=== PATIENT | male | born 1940 | race Caucasian/White ===

== ENCOUNTER 2016-11-09 18:46 | Inpatient (IN) | payer MEDICARE, BC ==
--- NOTE | ~2016-11-09 | CO ---
Unit #: [id number] #: [id number] Patient: VISHAL NOLAND JR [id number] [address] [place], [place] [address] [id number] I MR#: [id number] NAME: VISHAL NOLAND JR ROOM: 310 Age: 76 Sex: M Admission Date: 11/09/2016 : 1940 Attending Physician: Petrona Coleman M.D. Primary Care Physician: Valdez Ayala M.D. Consultation Date: 11/10/2016 CONSULTATION REPORT REASON FOR CONSULT Renal failure, hyperkalemia. Thank you very much for asking me to see this patient in consultation. Mr. Vishal Noland is a 76-year-old male who has a history of ascites requiring intermittent paracentesis although workup, according to Dr. Lancaster, was negative so far including liver biopsy, even ruling out amyloidosis, etc. as well as ruling out cardiac related according to him, who had a large volume paracentesis and labs were done yesterday which showed an increased potassium. Apparently as an outpatient it was reported at 7. When he came in here it was 6.6 and BUN and creatinine 92 and 2.7. In reviewing his records, back in 2015 he had a creatinine ranging between 1.3 and .4 an in August it was 1.5. Over the last six months, he has been started on Aldactone to the ascites. He currently denies ever having any problems, seeing a kidney doctor. He also denies taking nonsteroidals. In June of 2016, he had a urinalysis that showed no proteinuria or hematuria at that time. PAST MEDICAL HISTORY 1. History of hypertension. 2. History of ascites. 3. History of diabetes mellitus. 4. History of anemia. 5. History of gastroesophageal reflux disease. SOCIAL HISTORY He is . Doesn't smoke. He drinks two to three drinks a week. FAMILY HISTORY Negative for kidney problems. MEDICATIONS His medicines at home include: 1. Amlodipine/atorvastatin daily. 2. Zetia daily. 3. Glipizide daily. 4. Lisinopril/Hydrochlorothiazide 20/12.5 twice a day. 5. He is on pantoprazole 40 mg at day. 6. He is on pioglit/metformin 15/500 twice a day. 7. He is on spironolactone 100 mg a day. 8. Lasix 40 mg a day. REVIEW OF SYSTEMS Unit #: [id number] #: [id number] Patient: VISHAL NOLAND JR He denies any fevers, chills, visual problems, sinus problems, cough, hemoptysis, sore throat, difficulty swallowing. No neck pain, neck stiffness. No chest pain, chest heaviness or palpitations. He denies any severe abdominal pain, just intermittent ascites and swelling. Denies any urinary symptoms, starting, stopping or burning. He denies any recent lower extremity swelling. He did have some in the past but with his diuretics he says that has improved. He denies any recent seizures, strokes or skin rashes. PHYSICAL EXAMINATION GENERAL: He is alert and oriented. VITAL SIGNS: His T max is 98.3, his pulse is 60 to 72, his blood pressure is 106-136/402 to 70s. HEENT: He is normocephalic, atraumatic. Pupils are equal, round, reactive to light. Extraocular muscles are intact. Hearing appears to be normal. Mouth is clear. No erythema, no exudate. NECK: Supple. No JVD, no adenopathy. CARDIAC: He has a regular rhythm with about a 2/6 systolic ejection murmur. No rubs were heard. No S3 or S4 was heard. LUNGS: Fairly clear bilaterally with no wheezes, rhonchi or rales. ABDOMEN: Mildly distended. Bowel sounds positive. Nontender, soft. EXTREMITIES: He has no lower extremity swelling. His pulses are intact in upper and lower extremities. JOINTS: No joint pain or joint swelling. SKIN: No rashes. NEUROLOGICAL: Appears to be intact to both motor and sensory grossly. : Deferred. DIAGNOSTIC STUDIES LABORATORY DATA: Upon presentation, glucose 143, BUN 92, creatinine 2.7, potassium 6.6, bicarb is 16, calcium is 8.8, albumin is 3.6. Liver function tests were normal. T saturation was 18. Today, his calcium is 8.0, his BUN is down to 74, creatinine 1.8, potassium of 5.0, bicarb is 15. His INR is 1.3. Hemoglobin was 7.9 when he came in, down to 6.9 today. White count 7600, platelets of 252,000. He had a retic count of 0.8. No urinalysis was done. He did have an S-PEP in September 2016 that showed no abnormalities. ASSESSMENT AND PLAN 1. Hyperkalemia: Patient with increased potassium, multifactorial, including acidosis as well as lisinopril as well as Aldactone, all causing hyperkalemia along with his renal insufficiency. Certainly, it is improving. He is still on the spironolactone. Will DC this. He is off his lisinopril as well and will again keep him off this for now. Will recheck in the morning, continue to follow. He also is acidotic. Unsure exact etiology, possibly related to renal insufficiency versus maybe lactic acidosis from his metformin versus other. Will put him on some oral p.o. bicarbonate for now. 2. Acute on probable chronic kidney disease stage 3: Patient's baseline creatinine is 1.3 to 1.5 over the last year. His last urine was benign. Will recheck a UA to make sure he doesn't have any active urinary sediment, either hematuria or proteinuria. Check a bladder scan postvoid residual, check a renal ultrasound to rule out obstruction. Check urine sodium as well. I don't think he has hepatorenal syndrome. He does appear to be volume depleting and will Unit #: [id number] #: [id number] Patient: VISHAL NOLAND JR stop his Lasix along with his spironolactone and keep in observation. Recheck labs in the morning. 3. Acidosis: I don't have an ABG but I assume metabolic acidosis. Will check a lactic acid level. 4. Ascites: Continue workup. 5. Anemia: Workup under way. 6. Hypertension: Again, will follow. Continue off his LEIGHA inhibitor and Lasix and Aldactone for now. Thank you very much. Dictated by... Missael Macias M.D. EDMUND/vanessa TD: 11/11/2016 08:59 JOB #: [id number] CONSULTATION REPORT Page 1 of 1 X Earnest Macias MD X CONSULTATION REPORT
--- NOTE | ~2016-11-09 | EKG ---
PATIENT: KEVYN RIDDLE UNIT #: [id number] Ventricular Rate: 54 BPM Atrial Rate: 65 BPM QRS Duration: 90 ms Q-T Interval: 426 ms QTC Calculation(Bezet): 403 ms Calculated R [place]: -19 degrees Calculated T [place]: 46 degrees Diagnosis Line: Undetermined rhythm Diagnosis Line: Otherwise normal ECG Diagnosis Line: When compared with ECG of 26-JUN-2016 08:42, Diagnosis Line: Current undetermined rhythm precludes rhythm Diagnosis Line: comparison, needs review Diagnosis Line: Confirmed by JAQUELIN DUENAS MD ([id number]) on 11/10/2016 Diagnosis Line: 11:20:55 PM INTERPRETING MD: YULISSA MORALES
--- NOTE | ~2016-11-09 | EKG ---
PATIENT: KEVYN RIDDLE UNIT #: [id number] Ventricular Rate: 56 BPM Atrial Rate: 32 BPM QRS Duration: 92 ms Q-T Interval: 418 ms QTC Calculation(Bezet): 403 ms Calculated R [place]: -17 degrees Calculated T [place]: 62 degrees Diagnosis Line: Atrial fibrillation Diagnosis Line: Abnormal ECG Diagnosis Line: No previous ECGs available Diagnosis Line: Confirmed by JAQUELIN DUENAS MD ([id number]) on 11/11/2016 Diagnosis Line: 10:29:02 PM INTERPRETING MD: YULISSA MORALES
--- NOTE | ~2016-11-09 | XA51 ---
[facility] A Service of [facility] RADIOLOGY TEXT RESULTS PATIENT: KEVYN NOLAND JR LOCATION: [facility] 310- : 39 UNIT #: [id number] AGE: [address]: Petrona Coleman MD SEX: M ORDER DR: [id number] [address] [place], [place] [address] [id number] I MR#: [id number] #: [id number] NAME: KEVYN NOLAND : 1940 SEX: M STUDY DATE/TIME: 11/11/2016 12:05 UNIT: [address] ROOM: [facility] STUDY DESCRIPTION: XA BX Bone Marrow Attending Physician: Petrona Coleman M.D. Ordering Physician: Francisco Moreno M.D. Primary Care Physician: Valdez Ayala M.D. MEDICAL IMAGING REPORT This report is preliminary unless electronic signature is present EXAM Fluoroscopically-guided bone marrow biopsy and aspiration. HISTORY 76-year-old male with anemia. MEDICATIONS 3 mg of Versed IV, 125 mcg of fentanyl IV administered. Approximately 30 minutes of sedation time was monitored by appropriately credentialed Radiology nursing staff. The risks, benefits and alternatives to the procedure were discussed with the patient, and informed consent was obtained. In the procedure room, a time-out was performed, confirming correct patient and procedure. All elements of maximum sterile barrier technique were utilized according to guidelines appropriate for the procedure. The patient was placed in the prone position on the fluoroscopy table. Skin overlying the posterior right iliac crest was prepped and draped in the usual sterile fashion. 1% lidocaine was utilized to anesthetize the skin and underlying subcutaneous tissues. Next, under fluoroscopic guidance, an 11-gauge OnControl Access needle was advanced into the marrow space. A bone marrow aspirate, followed by a biopsy, was obtained. The needle was removed, and a sterile dressing was applied. There were no immediate complications. FLUOROSCOPY Fluoro time 0.3 minutes, and reference air kerma was 17 mGy-cm. IMPRESSION Technically successful fluoroscopically-guided bone marrow biopsy [facility] A Service of [facility] RADIOLOGY TEXT RESULTS PATIENT: KEVYN NOLAND JR [facility] 310-01 : 39 UNIT #: [id number] AGE: [address]: Petrona Coleman MD SEX: M ORDER DR: aspiration Dictated by... Adi Noland M.D. THIS IS AN ELECTRONICALLY VERIFIED REPORT Adi Noland M.D. at 11/12/2016 9:02 AM León TD: 11/11/2016 17:47 JOB #: [id number] MEDICAL IMAGING REPORT Page 1 of 1 COPY
--- NOTE | ~2016-11-09 | US77 ---
[facility] A Service of [facility] RADIOLOGY TEXT RESULTS PATIENT: KEVYN RIDDLE JR LOCATION: [facility] 310-01 : 39 UNIT #: [id number] AGE: [address]: Petrona Coleman MD SEX: M ORDER DR: [id number] [id number] [facility] [place], [place] [address] [id number] I MR#: [id number] Acc #: [id number] NAME: KEVYN RIDDLE : 1940 SEX: M STUDY DATE/TIME: 11/10/2016 18:57 UNIT: [address] ROOM: [facility] STUDY DESCRIPTION: US Kidney Bilateral Complete Attending Physician: Petrona Coleman M.D. Ordering Physician: Missael Macias M.D. Primary Care Physician: Valdez Ayala M.D. MEDICAL IMAGING REPORT This report is preliminary unless electronic signature is present EXAM Bilateral renal ultrasound HISTORY Acute renal failure. Elevated creatinine. FINDINGS Ultrasound examination both kidneys demonstrates no hydronephrosis. There is a subtle hypoechoic mass in the upper pole right kidney corresponding to a subcentimeter renal cyst on CT 05/01/2016. There is also a small exophytic cyst in the lower pole left kidney measuring close to 1.5 cm also corresponding to a finding on CT. There is slightly increased renal parenchymal echotexture bilaterally suggesting chronic medical renal disease. Mild generalized bilateral renal parenchymal atrophy. The right kidney measures 9.6 in length and the left kidney measures 11.3 cm in length. No perinephric fluid collection. However, there is a small amount of diffuse abdominal ascites. The urinary bladder is unremarkable. IMPRESSION 1. No hydronephrosis. 2. Slightly increased renal parenchymal echotexture bilaterally suggesting chronic medical renal disease. 3. Small probable cysts in both kidneys appear to correspond a similar findings on CT 05/01/2016, better demonstrated on the CT. 4. Mild renal cortical thinning bilaterally. 5. Small amount of ascites. Dictated by... Aayush Robert M.D. THIS IS AN ELECTRONICALLY VERIFIED REPORT [facility] A Service of [facility] RADIOLOGY TEXT RESULTS PATIENT: KEVYN RIDDLE JR LOCATION: [facility] 310-01 : 39 UNIT #: [id number] AGE: [address]: Petrona Coleman MD SEX: M ORDER DR: Aayush Robert M.D. at 11/11/2016 10:55 PM JAYSON/rose TD: 11/11/2016 00:17 JOB #: [id number] MEDICAL IMAGING REPORT Page 1 of 1 COPY
--- NOTE | ~2016-11-09 | CO ---
Unit #: [id number] #: [id number] Patient: KEVYN NOLAND JR [id number] [facility] [address] [facility] [place] [facility]. [place], [place] [address] [id number] I MR#: [id number] NAME: KEVYN NOLAND JR ROOM: 310 Age: 76 Sex: M Admission Date: 11/09/2016 : 1940 Attending Physician: Petrona Coleman M.D. Primary Care Physician: Valdez Ayala M.D. Consultation Date: 11/11/2016 CONSULTATION REPORT CHIEF COMPLAINT Admitted with hyperkalemia. We were asked to see for atrial fibrillation with slowed ventricular rate. HISTORY OF PRESENT ILLNESS Mr. Noland is a 76-year-old white male with a history of anasarca and ascites since 2015. He has had multiple paracentesis without malignancy being identified. He has a history of atrial fibrillation since the s. He has never required any rate control medications. He denies any anticoagulation other than aspirin. The patient states that two days ago he presented to his doctor's office, where he underwent a paracentesis and blood work. An then his physician sent him to [facility] for hyperkalemia. He presented in the emergency room with a potassium of 6.6 and has been treated with Kayexalate. Last night, magnesium level was done and that was 0.9 and at present, the patient is being replaced with his magnesium. He states he has never had a coronary catheterization. He has never had a stress test. He does not have issues with chest pain, nor shortness of air. The only time he has experienced shortness of air was when he had ascites and they removed 9 L of fluid and his shortness of air resolved. He underwent a cardiac MRI on 10/12/2016, which showed left ventricular ejection fraction of 70%, normal wall motion, right ventricular size and systolic function was normal with a right ventricular EF of 65%. There was no evidence for left ventricular scar, fibrosis or infarction. There was nothing to suggest amyloidosis. There was no evidence of pericardial thickening, nothing to suggest constriction. Again with ascites noted and there was enlargement of the main pulmonary artery at 3.3 cm indicative of pulmonary hypertension. PAST MEDICAL HISTORY 1. Ascites with multiple paracentesis and anasarca with no malignancy identified. 2. Hypertension. 3. Diabetes type 2. 4. Dyslipidemia. 5. Diastolic congestive heart failure with an ejection fraction of 55% to 60%. Echo done on 09/15/2016 showed an EF of 65%, left atrium was mildly dilated. The right ventricular systolic pressure was 52, consistent with moderate pulmonary hypertension. There was mild to moderate tricuspid regurgitation. Rhythm was atrial fibrillation at that time. PAST SURGICAL HISTORY 1. Paracentesis x3. 2. Bilateral inguinal hernia repair. Unit #: [id number] #: [id number] Patient: KEVYN NOLAND JR 3. EGD, biopsy done 05/01/2016 showed mild to moderate erosive duodenitis. 4. Peritoneal biopsy. 5. Liver biopsy. 6. Colonoscopy. 7. Right thumb surgery. 8. Bilateral cataract surgery. HOME MEDICATIONS PRIOR TO ADMISSION Showed amlodipine and atorvastatin 5/80 mg daily; Zetia 10 mg daily; Glucotrol XL 5 mg every morning; lisinopril and hydrochlorothiazide 20/12.5 twice daily; Protonix 40 mg daily; pioglitazone and metformin 15/500 twice daily; Lasix 40 mg daily; spirolactone 100 mg daily. ALLERGIES No known allergies. FAMILY HISTORY Noncontributory. REVIEW OF SYSTEMS No fevers. No chills. No cough. No shortness of air. No chest pain. No chest pressure. No palpitations. No near syncope. No lightheadedness. No dizziness. Patient states his average ventricular rate runs around 55. Positive for snoring at night. No hematuria. No melena. No bright red bleeding per rectum. Positive for abdominal distention and fluid. No gait disturbance. PHYSICAL EXAMINATION GENERAL: Well-developed, well-nourished, white male, in bed, no acute distress. VITAL SIGNS: Temperature 98.0, blood pressure 126/57, pulse at present is 70, heart rate has been anywhere between 32 and 70. There are no pauses. Currently patient has PVCs in short runs and nonsustained VT with a magnesium of 1.0. Respirations are 18. He is 5 feet 11 inches, weight is 72.8 kg on admission. 11/09/2016 he was 72.57 kg. HEENT: Normocephalic and atraumatic. No xanthelasma. Pupils equal, round, and reactive to light. Extraocular movements intact. No jugular venous distention. No obvious elevation of CVP. LUNGS: Clear to auscultation bilaterally anteriorly, posteriorly, bilaterally. HEART: S1 and S2. 2/6 systolic murmur. No lift. PMI is nondisplaced. Atrial fibrillation with variable ventricular rate this a.m. in the 60s and 70s. ABDOMEN: Positive bowel sounds. Abdomen distended. EXTREMITIES: Bilateral lower extremity edema. 2+ pulses. SKIN: No rash. NEUROLOGIC: Awake, alert, and oriented x3. Speech clear and appropriate. No facial drooping. Moving all extremities spontaneously with equal strength. DIAGNOSTIC STUDIES IMAGING STUDIES: 11/09/2016 - paracentesis removing 5.3 L of fluid. 11/10/2016 - ultrasound of the kidneys show no hydronephrosis, slightly increase renal parenchymal echotexture bilaterally. Stress chronic medical renal disease, small probable cyst in both kidneys. A small amount of ascites. Unit #: [id number] #: [id number] Patient: VENKATESH MAJOR,KEVYN Cedillo LABORATORY STUDIES: Chemistry - sodium 135, potassium 4.9, chloride 109, CO2 17, BUN 57, creatinine 1.2, glucose 106, magnesium 0.9, total protein 5.5, albumin 2.9, AST 26, ALT 22. CK 90. Iron 57, total iron binding capacity 309. Trans fat 18, B12 362, folate 16.7, ferritin 181, transferrin 220. Lactic acid 1.5. Coagulation - PT 13.4, INR 1.3, PTT 29.2. Hemoglobin 7.5, hematocrit 21.9, white blood cell count 6.6, and platelet count 267,000. UA negative for leukocyte esterase, negative nitrate, negative bile and blood, negative ketones, negative glucose, negative protein. ASSESSMENT AND PLAN 1. Atrial fibrillation with slow ventricular rate. Patient is not on any beta-blockers nor on any calcium channel blockers. Rates are now in the 60s to 70s. There were no pauses noted. Mostly his low rates were during the night. Patient presented with hyperkalemia and hypomagnesemia. This is most likely related to his electrolyte imbalances, possible also obstruct sleep apnea. We will screen with an overnight pulse oximetry. 2. Hyperkalemia. Most likely due to spironolactone therapy. 3. Hypomagnesemia. Patient was on multiple diuretic therapy, currently being replaced. 4. Nonsustained VT. Frequent PVCs in the setting of electrolyte imbalance, again being replaced. 5. Anemia with hemoglobin of 7.5. Primary team following. 6. Pulmonary hypertension with right ventricular systolic pressure of 53 on echo and as well per cardiac MRI revealing main pulmonary artery 3.3 cm. 7. There is no evidence for a sick sinus syndrome. No pauses. No tachycardiac. No requirement for a permanent pacemaker at this time. Again we will screen for obstructive sleep apnea. We will also discontinued his Zetia. His diuretics have already been discontinued. Dr. Arellano has seen in consultation and plan confirmed. Thank you very much for allowing us to participate in the care of your patient. Dictated by... Reagan BarkerP.R.N. for Cirilo Arellano M.D. SHELIA/yuko TD: 11/11/2016 10:38 JOB #: [id number] CONSULTATION REPORT Page 1 of 1 X X CONSULTATION REPORT
--- NOTE | ~2016-11-09 | DS ---
Unit #: [id number] #: [id number] Patient: KEVYN RIDDLE JR [id number] [address] [address] [id number] I MR#: [id number] NAME: KEVYN RIDDLE JR ROOM: 310 Age: 76 Sex: M Admission Date: 11/09/2016 : 1940 Discharge Date: 11/12/2016 Attending Physician: Petrona Coleman M.D. Primary Care Physician: Valdez Ayala M.D. DISCHARGE SUMMARY FINAL DIAGNOSES 1. Hyperkalemia. 2. Acute on chronic renal failure. 3. Anemia. SECONDARY DIAGNOSES 1. Ascites. 2. Hypertension. 3. Diabetes mellitus type 2. 4. Gastroesophageal reflux disease. CONSULTS 1. Dr. Moreno - Oncology. 2. Dr. Marvin Macias - Nephrology. HOSPITAL COURSE Pleasant gentleman who does have chronic kidney disease stage 3 with chronic disease. He basically was admitted after he was seen from Dr. Aubrey Lancaster's office. Workup included a bone marrow which was evaluated by Oncology/Hematology. His medications were adjusted by nephrology. He was evaluated, suitable and stable for discharge. He will be discharged in stable condition. MEDICATIONS Medications on discharge include: 1. Sodium bicarb 1300 mg p.o. twice daily. 2. Pioglitazone plus metformin 15/500, one tablet p.o. b.i.d. 3. Zetia 10 mg p.o. daily. 4. Lasix 40 mg p.o. daily. 5. Amlodipine/atorvastatin 50/5/80, one tablet p.o. daily. 6. Spironolactone 50 mg p.o. daily as needed. 7. Protonix 40 mg p.o. daily. 8. Glucotrol XL 5 mg p.o. before breakfast. He is scheduled to follow up with his PCP in the next one week and follow up with Dr. Aubrey Lancaster as planned as an outpatient. Time spent coordinating discharge is about 27 minutes. Dictated by... Petrona Coleman M.D. Unit #: [id number] #: [id number] Patient: KEVYN RIDDLE JR OO/vanessa TD: 11/12/2016 11:27 JOB #: [id number] DISCHARGE SUMMARY Page 1 of 1 X Petrona Coleman MD DISCHARGE SUMMARY
--- NOTE | ~2016-11-09 | HP ---
Unit #: [id number] #: [id number] Patient: KEVYN RIDDLE JR [id number] [address] [place], [place] [address] [id number] I MR#: [id number] NAME: KEVYN RIDDLE JR ROOM: 310 Age: 76 Sex: M Admission Date: 11/09/2016 : 1940 Attending Physician: Petrona Coleman M.D. Primary Care Physician: Valdez Ayala M.D. HISTORY AND PHYSICAL REASON FOR EVALUATION Anemia. Please evaluate. HISTORY OF PRESENT ILLNESS The patient is a 76-year-old gentleman who started having ascites about a year ago and has had multiple abdominal paracenteses without actual diagnosis of why he is having ascites. He had upper and lower endoscopies and rectal biopsy and multiple abdominal paracenteses and laparoscopy with biopsy of the liver and omentum, which was unrevealing. He was found to have a normochromic normocytic anemia. We are requested to evaluate. PAST MEDICAL HISTORY 1. Diabetes type 2. 2. Hypertension. 3. Ascites. 4. Gastroesophageal reflux disease. SOCIAL HISTORY . The is present with him in the room. Nonsmoker. No alcohol usage. FAMILY HISTORY Negative for unknown ascites or unknown cancers. ALLERGIES No known drug allergies. HOME MEDICATIONS 1. Amlodipine. 2. Zetia. 3. Glucotrol. 4. Lipitor. 5. Protonix. 6. Furosemide. 7. Spironolactone. 8. Metformin. REVIEW OF SYSTEMS Tiredness, easily fatigued. About 25 to 30 pound weight loss over the last year. Otherwise 8 or 10 systems were within normal limits on exam. PHYSICAL EXAMINATION GENERAL: He looks his stated age. LYMPH: No supraclavicular, axillary or groin nodes. Unit #: [id number] #: [id number] Patient: KEVYN RIDDLE JR LUNGS: Lungs clear. HEART: Distant S1 and S2. ABDOMEN: Ascites is present. Moderate. NEUROLOGIC: Grossly intact. RECTAL: Not performed. DIAGNOSTIC STUDIES LABORATORY: CBC, hemoglobin 6.9, hematocrit 21, white blood cell count 5,900, platelets 252,000. Sodium 138, potassium 5, chloride 114, CO2 15, glucose 97, BUN 74, creatinine 1.8. ASSESSMENT This 76-year-old gentleman with refractory ascites still unexplained, has normochromic normocytic anemia, most probably related to his CKD 2-3. PLAN Will proceed with serum iron, TIBC, ferritin, B12, folate and reticulocyte count. Start Procrit if those are normal. Also proceed with bone marrow aspirate biopsy flow cytometry and special stains to see if we can explain his refractory ascites. Dictated by Francisco Moreno M.D. SPS/gz TD: 11/10/2016 14:50 JOB #: [id number] HISTORY AND PHYSICAL Page 1 of 1 X Francisco Moreno MD X HISTORY AND PHYSICAL
--- NOTE | ~2016-11-09 | HP ---
Unit #: [id number] #: [id number] Patient: KEVYN RIDDLE JR [id number] [address] [place], [place] [address] [id number] MR#: [id number] NAME: KEVYN RIDDLE JR ROOM: 24614 Age: 76 Sex: M Admission Date: 11/09/2016 : 1940 Attending Physician: Petrona Coleman M.D. Primary Care Physician: Valdez Ayala M.D. HISTORY AND PHYSICAL CHIEF COMPLAINT Hyperkalemia. HISTORY OF PRESENT ILLNESS The patient is a 76-year-old male who has a history of undiagnosed ascites and anasarca who usually gets large volume paracentesis which so far has been negative for malignancy of any sort. He went to see Dr. Lancaster in the office and was directed to come to the ER today for evaluation on account of some abnormal labs. On evaluation in the emergency room, potassium was 6.6. He did receive Kayexalate 30 grams. Other than that, he denied any headache, chest pain, shortness of breath, or difficulty breathing and denied any constipation or diarrhea. He does have abdominal distention. The tightness has improved significantly since he had it tapped today. REVIEW OF SYSTEMS Patient denied any palpitations, nausea, or vomiting at this time. He states he is actually hungry. PAST MEDICAL HISTORY 1. Ascites. 2. Hypertension. 3. Diabetes mellitus type 2. 4. Gastroesophageal reflux disease. PAST SURGICAL HISTORY 1. Peritoneal biopsy. 2. Liver biopsy. 3. Diagnostic laparoscopy with removal of ascites fluid up to 5500. 4. Colonoscopy. 5. Tooth extraction. 6. Right thumb surgery. 7. Bilateral inguinal hernia repair. 8. Bilateral cataract surgery. ALLERGIES No known drug allergies. FAMILY HISTORY Noncontributory to presenting complaint. PHYSICAL EXAMINATION GENERAL: He was comfortable and not in any distress. VITAL SIGNS: Blood pressure 136/42, pulse 65, respiratory rate 16, and Unit #: [id number] #: [id number] Patient: KEVYN RIDDLE JR temperature 97.5. HEENT: Pupils were equal and reactive to light and accommodation. NECK: Supple without thyromegaly. CHEST: Reduced breath sounds in the lung bases posteriorly. CARDIOVASCULAR: First and second heart sounds. ABDOMEN: Full. Moved with respiration. Positive fluid thrill. EXTREMITIES: Mild 1+ bilateral lower extremity edema. DIAGNOSTIC STUDIES LABORATORY: Chemistries with glucose initially of 143, BUN and creatinine 92 and 2.7, sodium and potassium 135 and 6.6, and chloride and bicarbonate 111 and 16. Labs on repeat showed a sodium of 134 and potassium of 5.3. CBC with WBC of 7.6, hemoglobin and hematocrit 7.9 and 24, and platelet count of 280,000. ASSESSMENT AND PLAN 1. Hyperkalemia. He has received Kayexalate and some fluids. Will repeat his CBC and BMP in the morning. 2. Ascites, status post paracentesis. Will reevaluate his symptoms. 3. Hypertension. 4. Diabetes mellitus type 2. Put him on a constant carbohydrate diet and put him on Accu-Cheks q.a.c. and at bedtime with a low-dose sliding scale. 5. Reevaluate his electrolytes in the morning with a CBC and BMP. Should these be normal, will discharge patient home. 1. Dictated by Karey Mckeon/oscar TD: 11/09/2016 20:02 JOB #: [id number] HISTORY AND PHYSICAL Page 1 of 1 X Petrona Coleman MD X HISTORY AND PHYSICAL
[~2016-11-09 18:46] MED LIST: ACTOPLUS MET X1 EACH PO; AMLODIPINE-ATO1 EAC3 PO; ASPIRIN81 M1 PO; ASPIRIN81 M2 PO; FUROSEMIDE40 MG PO; GLUCOTROL XL PO; LISINOPRIL-HCTZ1 T14 PO; PIOGLITAZONE-M1 EACH PO; PROTONIX PO; SPIRONOLACTONE100 MG PO; SPIRONOLACTONE50 MG PO; ZETIA PO
[2016-11-09 19:25] LABS: BUN/CREATININE RATIO 38.63; CALCIUM SERUM 8.1 mg/dL (8.4-10.2); CREATININE SERUM 2.2 mg/dL (0.6-1.4); GLOM FILT RATE Estimated 27.9 mL/min (>60); POTASSIUM 5.3 mmol/L (3.5-5.1)
[2016-11-10 08:11] LABS: BASOPHIL# 0.1 X10e3 (0-0.3); EOSINOPHIL# 0.2 X10e3 (0-0.7); EOSINOPHIL% 3.9 % (0.0-7.0); LYMPHOCYTE# 0.9 X10e3 (1.0-3.5); LYMPHOCYTE% 16.1 % (17.0-45.0); MEAN CELL VOLUME 87.2 FL (83-96); MEAN CORPUSCULAR HEMOGLOBIN 28.6 PG (28-34); MEAN CORPUSCULAR HGB CONC 32.8 g/dL (30-36); MEAN PLATELET VOLUME 7.9 FL (6.5-11.5); MONOCYTE# 0.7 X10e3 (0-1.0); MONOCYTE% 11.4 % (3.0-12.0); NEUTROPHIL% 67.6 % (40-75); PLATELET COUNT 252 X10e3 (140-420); WHITE BLOOD COUNT 5.9 X10e3 (4.0-10.5)
[2016-11-10 08:25] LABS: DIFF IND YES; HEMOGLOBIN 6.9 gm/dL (13.0-16.0)
[2016-11-10 08:39] LABS: BUN/CREATININE RATIO 41.11; CREATININE SERUM 1.8 mg/dL (0.6-1.4); GLOM FILT RATE Estimated 35.5 mL/min (>60)
[2016-11-10 08:44] LABS: ANISOCYTOSIS MOD; PLATELET ESTIMATE NORMAL (NORMAL)
[2016-11-10 14:24] LABS: IRON SERUM 57 ug/dL (45-182); TOTAL IRON BINDING CAPACITY 309 ug/dL (252-460); TRANSFERRIN 220 mg/dL (180-329); TRANSFERRIN SATURATION 18 % (20-50)
[2016-11-10 16:07] LABS: FOLATE (FOLIC ACID) 16.7 ng/mL (>5.8)
[2016-11-10 23:37] LABS: URINE SOURCE CLEAN CATCH
[2016-11-10 23:42] LABS: URINE APPEARANCE CLEAR; URINE BILIRUBIN NEG (NEG); URINE BLOOD NEG (NEG); URINE COLOR YELLOW; URINE GLUCOSE NEG (NEG); URINE KETONE NEG (NEG); URINE LEUKOCYTE ESTERASE NEG (NEG); URINE NITRATE NEG (NEG); URINE PROTEIN NEG (NEG); URINE SPECIFIC GRAVITY 1.013 (1.003-1.035); URINE UROBILINOGEN 0.2 MG/DL (NEG)
[2016-11-10 23:49] LABS: CREATININE,RANDOM URINE 55 mg/dL; SODIUM URINE RANDOM 72 mmol/L
[2016-11-11 06:46] LABS: INR 1.3; PARTIAL THROMBOPLASTIN TIME 29.2 SECONDS (23.5-31.3); PROTHROMBIN TIME (PATIENT) 13.4 SECONDS (9.6-11.5)
[2016-11-11 06:58] LABS: HEMATOCRIT 21.9 % (38.0-50.0); HEMOGLOBIN 7.5 gm/dL (13.0-16.0); MEAN CELL VOLUME 86.6 FL (83-96); MEAN CORPUSCULAR HEMOGLOBIN 29.5 PG (28-34); MEAN CORPUSCULAR HGB CONC 34.1 g/dL (30-36); MEAN PLATELET VOLUME 8.1 FL (6.5-11.5); RED BLOOD COUNT 2.53 X10e (3.90-5.60); RED CELL DISTRIBUTION WIDTH 18.9 % (11.0-15.5); WHITE BLOOD COUNT 6.6 X10e3 (4.0-10.5)
[2016-11-11 07:23] LABS: ALBUMIN SERUM 2.9 g/dL (3.5-5.0); BILIRUBIN,TOTAL 0.4 mg/dL (0.2-2.0); BUN/CREATININE RATIO 47.5; CALCIUM SERUM 8.2 mg/dL (8.4-10.2); CREATININE SERUM 1.2 mg/dL (0.6-1.4); PHOSPHOROUS 3.7 mg/dL (2.5-4.6); POTASSIUM 4.9 mmol/L (3.5-5.1); PROTEIN TOTAL SERUM 5.5 g/dL (6.0-8.3)
[2016-11-11 07:25] LABS: MAGNESIUM 0.9 mg/dL (1.6-3.0)
[2016-11-12 06:44] LABS: HEMATOCRIT 24.2 % (38.0-50.0); MEAN CELL VOLUME 87.8 FL (83-96); MEAN CORPUSCULAR HEMOGLOBIN 28.9 PG (28-34); MEAN CORPUSCULAR HGB CONC 32.9 g/dL (30-36); MEAN PLATELET VOLUME 7.9 FL (6.5-11.5); RED BLOOD COUNT 2.76 X10e (3.90-5.60); RED CELL DISTRIBUTION WIDTH 18.3 % (11.0-15.5); WHITE BLOOD COUNT 6.9 X10e3 (4.0-10.5)
[2016-11-12 06:57] LABS: BUN/CREATININE RATIO 35.45; CALCIUM SERUM 8.6 mg/dL (8.4-10.2); CREATININE SERUM 1.1 mg/dL (0.6-1.4); GLOM FILT RATE Estimated 64.4 mL/min (>60); MAGNESIUM 1.8 mg/dL (1.6-3.0); POTASSIUM 4.8 mmol/L (3.5-5.1)
[2016-11-12] MEDS ORDERED: SPIRONOLACTONE50 MG PO (12:13)
== END 2016-11-12 13:10 | disposition home or self-care (01) | DRG 683 ==
LOC: CED 18:46 → CEDOF 18:47 → C3A PCU 21:14
PROVIDERS: Family Medicine; Internal Medicine Medical Oncology; Internal Medicine Nephrology
PROC: 07DR3ZX Extraction of Iliac Bone Marrow, Percutaneous Approach, Diagnostic (ICD-10-PCS; principal; 2016-11-11)
DX: N17.9 Acute kidney failure, unspecified (principal); R18.8 Other ascites; I47.2 Ventricular tachycardia; E87.2 Acidosis; E11.22 Type 2 diabetes mellitus with diabetic chronic kidney disease; I50.32 Chronic diastolic (congestive) heart failure; I12.9 Hypertensive chronic kidney disease with stage 1 through stage 4 chronic kidney disease, or unspecified chronic kidney disease; D63.1 Anemia in chronic kidney disease; K21.9 Gastro-esophageal reflux disease without esophagitis; N18.3 Chronic kidney disease, stage 3 (moderate); I27.2 Other secondary pulmonary hypertension; I07.1 Rheumatic tricuspid insufficiency; I48.91 Unspecified atrial fibrillation; E83.42 Hypomagnesemia
CPT/HCPCS: 36415; 76770; 77002; 80048; 80053; 81003; 82550; 82570; 82607; 82728; 82746; 82947; 83540; 83550; 83605; 83735; 84100; 84156; 84300; 85025; 85027; 85044; 85610; 85730; 88305; 88311; 93005; 94762; 96360; 99153; 99285; J0885; J1815; J2250; J3010; J3475

== ENCOUNTER → 2016-12-07 | Outpatient (CLI) | payer MEDICARE, BC ==
[2016-12-07 14:34] LABS: HEMATOCRIT 30.2 % (38.0-50.0); HEMOGLOBIN 9.9 gm/dL (13.0-16.0); MEAN CELL VOLUME 90.1 FL (83-96); MEAN CORPUSCULAR HEMOGLOBIN 29.4 PG (28-34); MEAN CORPUSCULAR HGB CONC 32.7 g/dL (30-36); MEAN PLATELET VOLUME 7.5 FL (6.5-11.5); RED BLOOD COUNT 3.35 X10e (3.90-5.60); RED CELL DISTRIBUTION WIDTH 19.6 % (11.0-15.5); WHITE BLOOD COUNT 7.2 X10e3 (4.0-10.5)
[2016-12-07 15:04] LABS: ALBUMIN SERUM 3.9 g/dL (3.5-5.0); BILIRUBIN,TOTAL 0.7 mg/dL (0.2-2.0); BUN/CREATININE RATIO 23.33; CALCIUM SERUM 9.3 mg/dL (8.4-10.2); CREATININE SERUM 1.2 mg/dL (0.6-1.4); POTASSIUM 4.8 mmol/L (3.5-5.1)
== END | disposition home or self-care (01) ==
LOC: CLAB 13:54
PROVIDERS: Nurse Practitioner
DX: R18.8 Other ascites (principal)
CPT/HCPCS: 36415; 80053; 85027

== ENCOUNTER → 2016-12-29 | Outpatient (CLI) | payer MEDICARE, BC ==
--- NOTE | ~2016-12-29 | XA170 ---
[facility] A Service of [facility] RADIOLOGY TEXT RESULTS PATIENT: KEVYN NOLAND JR LOCATION: [facility] : 39 UNIT #: [id number] AGE: [address]: KARYN BUCK APRN SEX: M ORDER DR: [id number] [facility]. [place], [place] [address] [id number] O MR#: [id number] Acc #: [id number] NAME: KEVYN NOLAND : 1940 SEX: M STUDY DATE/TIME: 12/29/2016 13:56 UNIT: [facility] ROOM: STUDY DESCRIPTION: XA Paracentesis W Image Attending Physician: Karyn Buck Aprn Ordering Physician: Karyn Buck Aprn Primary Care Physician: Valdez Ayala M.D. MEDICAL IMAGING REPORT This report is preliminary unless electronic signature is present EXAM Ultrasound-guided paracentesis. INDICATIONS Recurrent ascites. Risks, benefits and alternatives of the procedure discussed with the patient and an informed consent was obtained. In the procedure room, a time-out was performed confirming correct patient and procedure. All elements of maximum sterile-barrier technique utilized according to guidelines appropriate for the procedure. TECHNIQUE/FINDINGS Ultrasound of the right lower quadrant was performed, and there is a large amount of ascites. The overlying skin was prepped and draped in the usual sterile fashion. 1% lidocaine utilized to anesthetize the skin and underlying subcutaneous tissues. Next, under ultrasound guidance, a 5-M[place] Yueh catheter was inserted into the peritoneal space of the right lower quadrant and 7300 mL of fluid was removed. Needle was removed and a sterile dressing was applied. No immediate complications. IMPRESSION Successful ultrasound guided paracentesis. Dictated by... Adi Noland M.D. THIS IS AN ELECTRONICALLY VERIFIED REPORT Adi Noland M.D. at 12/30/2016 7:46 AM PATRICIA/rober TD: 12/29/2016 22:34 JOB #: [id number] [facility] A Service of [facility] RADIOLOGY TEXT RESULTS PATIENT: KEVYN NOLAND JR LOCATION: [facility] #: [id number] : [birth year] UNIT #: [id number] AGE: [address]: KARYN BUCK APRN SEX: M ORDER DR: MEDICAL IMAGING REPORT Page 1 of 1 COPY
[2016-12-29 13:40] LABS: INR 1.2; PROTHROMBIN TIME (PATIENT) 12.3 SECONDS (9.6-11.5)
[2016-12-29 13:44] LABS: BILIRUBIN,TOTAL 0.7 mg/dL (0.2-2.0); BUN/CREATININE RATIO 28.33; CALCIUM SERUM 9.4 mg/dL (8.4-10.2); CREATININE SERUM 1.2 mg/dL (0.6-1.4); PROTEIN TOTAL SERUM 7.3 g/dL (6.0-8.3)
== END | disposition home or self-care (01) ==
LOC: CIVR 12:44
PROVIDERS: Nurse Practitioner
PROC: 0W9G3ZZ Drainage of Peritoneal Cavity, Percutaneous Approach (ICD-10-PCS; principal; 2016-12-29)
DX: R18.8 Other ascites (principal); D64.9 Anemia, unspecified; I48.91 Unspecified atrial fibrillation; M10.9 Gout, unspecified; I31.1 Chronic constrictive pericarditis; I50.9 Heart failure, unspecified; Z79.82 Long term (current) use of aspirin; Z79.899 Other long term (current) drug therapy; Z87.891 Personal history of nicotine dependence; Z83.3 Family history of diabetes mellitus
CPT/HCPCS: 36415; 80053; 85610

== ENCOUNTER → 2017-03-02 | Outpatient (CLI) | payer MEDICARE, BC ==
--- NOTE | ~2017-03-02 | XA170 ---
[facility] A Service of [facility] RADIOLOGY TEXT RESULTS PATIENT: KEVYN RIDDLE JR LOCATION: [facility] : 39 UNIT #: [id number] AGE: [address]: KARYN BUCK APRN SEX: M ORDER DR: [id number] [facility] [address]. [place], [place] [address] [id number] O MR#: [id number] Acc #: [id number] NAME: KEVYN RIDDLE JR : 1940 SEX: M STUDY DATE/TIME: 03/02/2017 12:50 UNIT: [facility] ROOM: STUDY DESCRIPTION: XA Paracentesis W Image Attending Physician: Karyn Buck Aprn Ordering Physician: Karyn Buck Aprn Primary Care Physician: Valdez Ayala M.D. MEDICAL IMAGING REPORT This report is preliminary unless electronic signature is present EXAM Ultrasound guided paracentesis. INDICATIONS Ascites. PROCEDURE The risks, benefits, and alternatives to the procedure were explained to the patient, and signed, informed consent was obtained. Patient was placed supine on the stretcher. Preliminary ultrasound of the abdomen was performed which demonstrated a large volume of ascites. This image was permanently saved overlying skin was marked. Patient was prepped and draped in sterile fashion. Time-out was performed per protocol skin and subcutaneous tissues were anesthetized with buffered Lidocaine. Yueh catheter was advanced into the fluid with aspiration of serous material catheter was hooked to suction tubing and evacuation of a total of 6 L of serous material catheter was then removed and manual pressure was applied until hemostasis was obtained. IMPRESSION Technically successful ultrasound guided paracentesis with evacuation of 6 L of serous material. Ultrasound image of used during the procedure and permanent images were saved. Dictated by... Karyna Hoyos M.D. THIS IS AN ELECTRONICALLY VERIFIED REPORT Karyna Hoyos M.D. at 03/04/2017 5:04 PM AFF/rnr TD: 03/04/2017 12:22 [facility] A Service of [facility] & [facility] RADIOLOGY TEXT RESULTS PATIENT: KEVYN RIDDLE JR LOCATION: [facility] #: [id number] : 39 UNIT #: [id number] AGE: [address]: KARYN BUCK APRN SEX: M ORDER DR: JOB #: [id number] MEDICAL IMAGING REPORT Page 1 of 1 COPY
[2017-03-02 12:09] LABS: HEMATOCRIT 31.5 % (38.0-50.0); HEMOGLOBIN 10.7 gm/dL (13.0-16.0); MEAN CELL VOLUME 87.4 FL (83-96); MEAN CORPUSCULAR HEMOGLOBIN 29.8 PG (28-34); MEAN CORPUSCULAR HGB CONC 34.1 g/dL (30-36); MEAN PLATELET VOLUME 7.6 FL (6.5-11.5); RED BLOOD COUNT 3.6 X10e (3.90-5.60); RED CELL DISTRIBUTION WIDTH 15.8 % (11.0-15.5); WHITE BLOOD COUNT 6.9 X10e3 (4.0-10.5)
[2017-03-02 12:24] LABS: INR 1.1; PARTIAL THROMBOPLASTIN TIME 27.6 SECONDS (23.5-31.3); PROTHROMBIN TIME (PATIENT) 12.3 SECONDS (10.0-11.7)
[2017-03-02 12:43] LABS: BILIRUBIN,TOTAL 0.7 mg/dL (0.2-2.0); BUN/CREATININE RATIO 21.42; CALCIUM SERUM 9.5 mg/dL (8.4-10.2); CREATININE SERUM 1.4 mg/dL (0.6-1.4); GLOM FILT RATE Estimated 48.1 mL/min (>60); POTASSIUM 4.1 mmol/L (3.5-5.1); PROTEIN TOTAL SERUM 7.4 g/dL (6.0-8.3)
== END | disposition home or self-care (01) ==
LOC: CIVR 11:36
PROVIDERS: Nurse Practitioner
DX: R18.8 Other ascites (principal)
CPT/HCPCS: 36415; 80053; 85027; 85610; 85730